=== PATIENT | female | born 1985 | race Caucasian/White ===

== ENCOUNTER 2020-04-24 11:15 | Emergency (ER) | payer OTHER ==
[~2020-04-24] VITALS: Ht 170.2 cm; Wt 122.3 kg
[2020-04-24 11:25] VITALS: BP 93/42; Ht 170.2 cm; Wt 122.3 kg
[2020-04-24] MEDS ORDERED: LIPITOR20 MG (11:36)
[2020-04-24] MEDS ORDERED: RIOMET500 MG/5 M (11:36)
[2020-04-24] MEDS ORDERED: SEROQUEL25 MG (11:37)
[2020-04-24] MEDS ORDERED: PROZAC10 MG (11:37)
[2020-04-24] MEDS ORDERED: KLONOPIN0.5 MG (11:37)
[2020-04-24] MEDS ORDERED: LISINOPRIL2.5 MG (11:37)
[2020-04-24 12:01] LABS: BASOPHILS 0.1 % (0-2); EOSINOPHILS 1.9 % (0-7); HEMATOCRIT 41.1 % (36.0-48.0); HEMOGLOBIN 13.6 g/dL (12-16); IMMATURE GRANULOCYTES 1.1 % (0-5); LYMPHOCYTES 19.6 % (15-50); MCH 27.4 pg (26.0-34.0); MCHC 33.1 g/dL (31.0-37.0); MCV 82.9 fL (80.0-100.0); NEUTROPHILS 71.3 % (40-80); PLATELET COUNT 414 10x3/uL (130-400); RBC 4.96 10x6/uL (4.00-5.40); RDW 14.3 % (11.5-14.5); WBC 15.5 10x3/uL (4.8-10.8)
[2020-04-24 12:11] LABS: CALC OSMOLALITY 268 mosm/kg (275-300); CALCIUM 9.2 mg/dL (8.5-10.1); CARBON DIOXIDE 22.8 mmol/L (21.0-32.0); CHLORIDE - SERUM 102 mmol/L (98-107); CREATININE - SERUM 0.8 mg/dL (0.6-1.3); GLUCOSE 142 mg/dL (74-106); POTASSIUM - SERUM 4.2 mmol/L (3.5-5.1); SODIUM 133 mmol/L (136-145); UREA NITROGEN 16 mg/dL (7-18); eGFR NON AFRICAN AMERICAN 85 mL/min (90-120)
[2020-04-24 12:15] LABS: ALBUMIN 3.7 g/dL (3.4-5.0); ALKALINE PHOSPHATASE 82 U/L (30-120); ALT (SGPT) 27 U/L (10-68); BILIRUBIN - TOTAL 0.44 mg/dL (0.2-1.3); MAGNESIUM - SERUM 1.7 mg/dL (1.8-2.4); PROTEIN - SERUM 8.1 g/dL (6.4-8.2)
[2020-04-24 12:15] LABS: UDS - AMPHET NEGATIVE QUAL (NEGATIVE); UDS - BARB NEGATIVE QUAL (NEGATIVE); UDS - BENZO NEGATIVE QUAL (NEGATIVE); UDS - COCAINE NEGATIVE QUAL (NEGATIVE); UDS - OPIATE NEGATIVE QUAL (NEGATIVE); UDS - PCP NEGATIVE QUAL (NEGATIVE); UDS - THC POSITIVE QUAL (NEGATIVE)
[2020-04-24 12:21] LABS: HCG URINE NEGATIVE (NEGATIVE)
[2020-04-24 12:45] LABS: BILIRUBIN NEGATIVE (NEGATIVE); KETONE NEGATIVE (NEGATIVE); NITRITE NEGATIVE (NEGATIVE); UROBILINOGEN NORMAL mg/dL (< 2)
[2020-04-24 12:46] LABS: WHITE CELLS - URINE 0-5 HPF (0-4)
[2020-04-24 12:48] LABS: BACTERIA MODERATE HPF (NONE SEEN)
--- NOTE | 2020-04-24 14:36 | NUR ---
DR. AMAYA NOTIFIED AND REVIEWED PT'S BEHAVIOR AND ASSESSMENT RESULTS. PT IS A LOW RISK PER DR. AMAYA. DR. AMAYA STATED TO GIVE RESOUCRCES TO PT AT TIME OF DISCHARGE. RESOUCRES REVIEWED AND PT VERBALIZIED UNDERSTANDING. PT DENIES SI AT THIS TIME. PT REPORTS " I JUST NEED MY MEDICATIONS ADJUSTED." CHARGE NURSE AND ATTENDING MD NOTIFIED.
[2020-04-24] MEDS ORDERED: KEFLEX500 MG PO (15:12)
== END 2020-04-24 18:51 | disposition home or self-care (01) ==
LOC: D.ER 11:15
PROVIDERS: Emergency Medicine
DX: F32.9 Major depressive disorder, single episode, unspecified (principal); E11.65 Type 2 diabetes mellitus with hyperglycemia; E83.42 Hypomagnesemia; E87.1 Hypo-osmolality and hyponatremia; D72.829 Elevated white blood cell count, unspecified; N39.0 Urinary tract infection, site not specified; I10 Essential (primary) hypertension; K21.9 Gastro-esophageal reflux disease without esophagitis; Z72.0 Tobacco use; Z79.84 Long term (current) use of oral hypoglycemic drugs